=== PATIENT | female | born 1955 | race Caucasian/White ===

== ENCOUNTER 2016-11-22 18:17 | Emergency (ER) | payer SELFPAY ==
[~2016-11-22] VITALS: Ht 167.6 cm; Wt 57.0 kg
[~2016-11-22 18:17] MED LIST: ALPR.25 PO
[2016-11-22 18:22] VITALS: BP 121/82; PULSE 74; RESP 16; TEMP 98.5; O2SAT 96
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
== END 2016-11-22 19:16 | disposition left against medical advice (07) ==
LOC: PHED 18:17 → PHEFT 19:16
DX: S61.012A Laceration without foreign body of left thumb without damage to nail, initial encounter (principal)
CPT/HCPCS: 73140; 99281